=== PATIENT | male | born 1945 | race Caucasian/White ===

== ENCOUNTER 2019-05-31 10:39 | Outpatient (CLI) | payer MEDICARE ==
--- NOTE | 2019-06-01 14:50 | RAD ---
EXAM: XR Ba Swallow W/Speech Therap PROVIDED CLINICAL HISTORY: Dysphagia, unspecified. Dysphagia, pharyngeal phase. COMPARISON: None FINDINGS: This examination was performed by speech pathology, and a video is available for evaluation. The yamilet ent was administered varying consistencies of barium during the exam. The patient demonstrates normal formation of the bolus into the posterior pharynx. There was premature spill of contrast into the vallecula with multiple consistencies prior to initiation of the swallowing mechanism. Episodes of penetration were demonstrated with thin liquid barium. No obvious aspiration was seen. A 12.5 mm b arium tablet was administered during the exam which traverses the visualized upper esophagus freely and without holdup. IMPRESSION: Mild penetration with thin liquid barium. No obvious aspiration was seen.
== END 2019-05-31 10:40 | disposition home or self-care (01) ==
PROVIDERS: ATTEND Otolaryngology Plastic Surgery within the Head & Neck
DX: R13.13 Dysphagia, pharyngeal phase (principal); R63.3 Feeding difficulties
CPT/HCPCS: 74230

== ENCOUNTER 2023-02-14 13:53 | Outpatient (CLI) | payer MEDICARE | END 2023-02-14 13:54 | disposition home or self-care (01) | LOC: BICRAD 13:53 | PROVIDERS: ATTEND Nurse Practitioner Family | DX: M17.12 Unilateral primary osteoarthritis, left knee (principal) ==